=== PATIENT | female | born 1975 | race Hispanic/Latino ===

== ENCOUNTER 2016-05-23 23:06 | Emergency (ER) | payer MEDICARE, MEDICAID ==
[~2016-05-23] VITALS: Ht 152.4 cm; Wt 63.2 kg
[~2016-05-23 23:06] MED LIST: BENZ200C44 PO; BUSP30TA2 PO; GABA800T2 PO; HYDR-656 PO; PRAZ1CAP2 PO; TOPI-59 PO; TOPI25TA26 PO; VENL100T3 PO
[2016-05-23 23:10] VITALS: BP 107/67; PULSE 89; RESP 16; O2SAT 98
--- NOTE | 2016-05-24 02:41 | ED.REPORT ---
HPI-Headache Date of Service May 24, 2016 ED Provider: Дмитрий Montalvo MD Pt is a 41 y/o female w/ a hx of frequent migraines with multiple negative workups presenting to the ED c/o migraine headache onset today. She states this headache is exactly similar to her previous migraines. Her headache is resolved at time of interview and she is asymptomatic. Pt denies neck pain, fever. Nursing Notes Stated Complaint: HEADACHE Chief Complaint: Headache Nursing Notes Reviewed: Yes Allergies: Coded Allergies: duloxetine HCl (Verified Adverse Reaction, Intermediate, Nausea,Vomiting, 09/04/15) pregabalin (Verified Adverse Reaction, Intermediate, Dizziness, Vomiting, 09/04/15) Scheduled Buspirone (Buspirone) 30 Mg Tablet 5 MG PO DAILY Gabapentin (Gabapentin) 800 Mg Tablet 800 MG PO DAILY Prazosin (Prazosin) 1 Mg Capsule 1 MG PO HS Topiramate (Topamax) 25 Mg Tablet 25 MG PO BID Topiramate (Topiramate) 25 Mg Tablet 25 MG PO BID Venlafaxine (Venlafaxine) 100 Mg Tablet 100 MG PO BID 1.5 tabs BID Scheduled PRN Benzonatate (Benzonatate) 200 Mg Capsule 200 MG PO TID PRN PRN For Cough hydrOXYzine Hcl (HydrOXYzine Hcl) 25 Mg Tablet 25 MG PO BID PRN PRN For Anxiety 3-4 tabs bid General Time Seen by MD: 02:39 Chief Complaint Migraine headache Hx Obtained From: Patient Arrived By: Walk-in Sudden in Onset?: No Onset Occurred: 1 - 4 hours ago Symptom Duration: Since onset Location: : Generalized Quality: Painful Severity: Current: Moderate Severity: Maximum: Moderate Recent Healthcare: Previous diagnosis, Prior workup Similar Sx Previous: Yes Past Medical History Past Medical History Notes: Seen by PCP 05/08/15, ED 05/23/15, and ED 06/11/15 for pain post hysterectomy - has had CT scan at each visit (x3) NAD Past Medical History Frequent ED visits for migraine (patient has had 18 Head CTs over the years at [facility]) Fibromyalgia Depression with h/o multiple suicide gestures Chronic Abdominal Pain Pt sent to [facility] 12/07/2003 for Subarachnoid Hemorrhage (No surgery, 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 angiogram revealed diffuse vasculitis, 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 Physical Exam Initial Vital Signs Vital Signs (First) Date Time Temp Pulse Resp B/P Pulse Ox O2 Delivery O2 Flow Rate FiO2 05/23/16 23:10 36.5 89 16 107/67 98 Room Air Initial VS: Reviewed, Vital signs normal ENT: Mucous membranes moist, Conjunctiva normal, No scleral icterus Respiratory: Breath sounds normal, Clear to auscultation, No respiratory distress Cardiovascular: Regular rate & rhythm, Heart sounds normal, Intact distal pulses Abdomen / GI: Soft, Non-tender Extremities: Vascular intact, Neuro intact, No swelling, No tenderness Skin: Warm, Dry, No cyanosis Psychiatric: Mood/affect normal, Behavior normal, Normal thought content General/Constitutional: Awake, Alert, No acute distress, Cooperative, Not toxic appearing Head / Eyes: Atraumatic, Normocephalic, PERRL, EOMI Neck: Atraumatic, Supple, No meningismus, Full range of motion Neurologic: Oriented X3, Speech NL, No motor deficits, No sensory deficits, CN II - XII intact, Cerebellar NL, Memory NL Re-Eval/Medical Decision Med Decision/Clinical Course 41-year-old female history of chronic headaches presenting with her typical chronic headache this evening. No meningeal signs or symptoms. No fevers. Her symptoms resolved prior to being evaluated. She was given a dose of Toradol and discharged with return precautions. Re-Evaluation/Progress : Time of Eval: 02:50 )( Patient Status: Condition resolved, Complete relief Re-Evaluation/Progress Note: Pt rechecked. Informed pt of plan for treatment. Pt understands and agrees with plan for treatment. F/U instructions and RTER warnings given. All questions addressed. Counseled Regarding: Diagnosis, Lab results, Need for follow-up, When/why to return to ED Discharge & Departure Impression: Primary Impression: Migraine Migraine type: unspecified Status migrainosus presence: without status migrainosus Intractability: not intractable Qualified Code: G43.909 - Migraine, unspecified, not intractable, without status migrainosus Disposition: Home Discharge Condition All VS Reviewed: Yes Condition: Stable Patient Instructions: Migraine Headache (ED) Additional Instructions: There are no dangerous neurological findings on your physical exam. Return to the emergency department for high fever, neck stiffness, persistent vomiting, or for other concerning symptoms. Follow-up with your primary care provider next week. Referrals: Ema Coppola MD (PCP) Scribe Attestation Portions of this note were transcribed by Sukhdeep Herrera. I, Dr. Montalvo, personally performed the history, physical exam and medical decision-making; I reviewed and confirmed the accuracy of the information in the transcribed note. Signed by Jessica Sales, 05/24/16 - 1440 copies to: Ema Coppola MD, Ben M MD May 24, 2016 02:41 SUKHDEEP HERRERA May 24, 2016 02:52
[2016-05-24] MEDS ORDERED: Ketorolac 30 mg/mL 2 mL Inj IM ONE (02:55)
[2016-05-24 03:56] VITALS: BP 120/67; PULSE 92; RESP 18; O2SAT 95
[2016-05-24 03:58] VITALS: BP 120/67; PULSE 92; RESP 18; O2SAT 95
== END 2016-05-24 03:59 | disposition home or self-care (01) ==
LOC: SED 23:06
DX: G43.909 Migraine, unspecified, not intractable, without status migrainosus (principal); M79.7 Fibromyalgia; F17.200 Nicotine dependence, unspecified, uncomplicated; Z88.8 Allergy status to other drugs, medicaments and biological substances
CPT/HCPCS: 96372; 99283; J1885

== ENCOUNTER 2016-09-28 22:55 | Emergency (ER) | payer MEDICARE, MEDICAID ==
[~2016-09-28] VITALS: Ht 152.4 cm; Wt 65.5 kg
[2016-09-28 23:17] VITALS: BP 122/85; PULSE 80; RESP 16; O2SAT 98
--- NOTE | 2016-09-28 23:58 | ED.REPORT ---
HPI-Abd Pain F Under 40 Date of Service Sep 28, 2016 ED Provider: Dr. Pisano Pt is a 41 year old Slovak speaking female with a hx of a stroke (2003) and chronic migraines presenting to the ED complaining of lower abdominal pain onset 1.5 weeks ago. She also complains of constipation, bloating, headache ( onset today around 0700), and nausea. Denies fever, chills or any other symptoms at this time. She saw her PCP last week and was given Lactulose, she then had diarrhea on the first day but has not had any BMs since then. She states that this abdominal pain is different than her chronic pain. Denies hx of bowel obstruction. Nursing Notes Stated Complaint: STOMACH PAIN,HEADACHE Chief Complaint: Female Abdominal Pain Nursing Notes Reviewed: Yes Allergies: Coded Allergies: duloxetine HCl (Verified Adverse Reaction, Intermediate, Nausea,Vomiting, 09/04/15) pregabalin (Verified Adverse Reaction, Intermediate, Dizziness, Vomiting, 09/04/15) Scheduled Buspirone (Buspirone) 30 Mg Tablet 5 MG PO DAILY Gabapentin (Gabapentin) 800 Mg Tablet 800 MG PO DAILY Prazosin (Prazosin) 1 Mg Capsule 1 MG PO HS Topiramate (Topamax) 25 Mg Tablet 25 MG PO BID Topiramate (Topiramate) 25 Mg Tablet 25 MG PO BID Venlafaxine (Venlafaxine) 100 Mg Tablet 100 MG PO BID 1.5 tabs BID Scheduled PRN Benzonatate (Benzonatate) 200 Mg Capsule 200 MG PO TID PRN PRN For Cough hydrOXYzine Hcl (HydrOXYzine Hcl) 25 Mg Tablet 25 MG PO BID PRN PRN For Anxiety 3-4 tabs bid General Time Seen by MD: 23:57 Chief Complaint Abdominal pain Hx Obtained From: Patient Arrived By: Walk-in Sudden in Onset?: No Onset Occurred: 1 week ago (1.5 ) Past Medical History Past Medical History Notes: Seen by PCP 05/08/15, ED 05/23/15, and ED 06/11/15 for pain post hysterectomy - has had CT scan at each visit (x3) NAD Past Medical History Frequent ED visits for migraine (patient has had 18 Head CTs over the years at [facility]) Fibromyalgia Depression with h/o multiple suicide gestures Chronic Abdominal Pain Pt sent to 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 Neurologic: Reports: Headache Physical Exam Initial Vital Signs Vital Signs (First) Date Time Temp Pulse Resp B/P Pulse Ox O2 Delivery O2 Flow Rate FiO2 09/28/16 23:17 36.9 80 16 122/85 98 Room Air Initial VS: Reviewed Head / Eyes: Atraumatic, Normocephalic, PERRL ENT: Mucous membranes moist, Conjunctiva normal, No scleral icterus Neck: Supple, Non-tender, Full range of motion Extremities: Vascular intact, Neuro intact, No swelling, No tenderness Skin: Warm, Dry, No cyanosis Neurologic: Alert, Oriented, Nonfocal Psychiatric: Mood/affect normal, Behavior normal, Normal thought content General/Constitutional: Awake, Alert In moderate distress due to pain Respiratory / Chest: Atraumatic, Breath sounds NL, Breath sounds = bilat, No respiratory distress Cardiovascular: Heart rate NL, Regular rhythm, Heart sounds NL, Peripheral circulation NL Abdomen: No guarding, No rebound Tenderness/Guarding/Rebound: Positive: Tender diffuse Bowel Sounds / Distention: Positive: Distention moderate Interpretation & Diagnostics Interpretation & Diagnostics: Urine Preg negative HEAD CT: CONCLUSION: No acute intracranial findings. This report was transmitted to the emergency room at 09/29/2016 - 2:09:39 AM PDT. Lab Results Interpretation Result Diagram: 09/29/16 0041 09/29/16 0041 Test 09/29/16 00:35 09/29/16 00:41 09/29/16 01:04 Urine Color Straw (YELLOW) Urine Appearance Clear (CLEAR,HAZY) Urine pH 6.0 (5.0-8.0) Urine Specific Bonner 1.010 (1.003-1.035) Urine Protein Negativemg/dL (NEG,TRACE) Urine Glucose (UA) Negativemg/dL (NEGATIVE) Urine Ketones Negativemg/dL (NEGATIVE) Urine Occult Blood Trace (NEGATIVE) Urine Nitrite Negative (NEGATIVE) Urine Bilirubin Negative (NEGATIVE) Urine Urobilinogen Normalmg/dL (NORMAL) Urine Leukocyte Esterase Trace (NEGATIVE) Urine RBC 0-2/hpf (0-2) Urine WBC 0-5/hpf (0-5) Urine Epithelial Cells Few/hpf (NONE-MOD) Urine Crystals None seen (NONE SEEN) Urine Bacteria None/hpf (NONE-FEW) Urine Hyaline Casts None/lpf (NONE) Urine Granular Casts None seen (NONE SEEN) Urine Waxy Casts Rare (NONE SEEN) Urine Red Blood Cell Casts None seen (NONE SEEN) Urine White Blood Cell Casts None seen (NONE SEEN) Urine Mucus Present (None Seen) Urine Trichomonas None seen (NONE SEEN) Urine Yeast None (NONE SEEN) Urinalysis Comment None Urine Culture Reflexed Indicated White Blood Count 12.3th/mm3 (3.8-10.1) Red Blood Count 4.39mil/mm3 (3.90-5.20) Hemoglobin 12.8g/dL (12.0-15.6) Hematocrit 37.0% (35.0-46.0) Mean Corpuscular Volume 84.3fL (81-100) Mean Corpuscular Hemoglobin 29.2pg (27.0-35.0) Mean Corpuscular Hemoglobin Concent 34.6% (32.0-37.0) Red Cell Distribution Width 12.3% (12.3-15.4) Platelet Count 203bil/L (150-400) Neutrophils (%) (Auto) 65.4% (40-74) Lymphocytes (%) (Auto) 26.5% (14-46) Monocytes (%) (Auto) 4.6% (4-12) Eosinophils (%) (Auto) 2.5% (0-5) Basophils (%) (Auto) 0.5% (0-3) Sodium Level 137mEq/L (134-144) Potassium Level 3.9mEq/L (3.5-5.2) Chloride Level 100mEq/L (97-108) Carbon Dioxide Level 23mmol/L (18-29) Blood Urea Nitrogen 11mg/dL (6-24) Creatinine 0.57mg/dL (0.57-1.00) Estimat Glomerular Filtration Rate 167mL/min (>59) Glucose Level 90mg/dL (60-99) Calcium Level 9.4mg/dL (8.5-10.1) Magnesium Level 2.0mg/dL (1.6-2.6) Total Bilirubin 0.2mg/dL (0.0-1.2) Aspartate Amino Transf (AST/SGOT) 12U/L (0-50) Alanine Aminotransferase (ALT/SGPT) 13U/L (0-32) Alkaline Phosphatase 50U/L (25-150) Total Protein 6.6g/dL (6.4-8.4) Albumin 3.8g/dL (3.4-5.0) Lipase 44U/L (13-60) Lactic Acid Level 0.5mmol/L (0.4-2.0) CT Abd / Pelvis Interpretation CONCLUSION: Normal caliber appendix. No free air, bowel obstruction, or gross intestinal inflammation. This report was transmitted to the emergency room at 09/29/2016 - 2:12:13 AM PDT. Re-Eval/Medical Decision Med Decision/Clinical Course 41-year-old female with chronic recurrent headaches associated with chronic abdominal pain presents complaining of both her chronic headache and abdominal pain. She is concerned because the abdominal pain now is much more severe than it has been in the past. Her headache is classic for her prior headaches. Headache was not thunderclap. Headache was not maximal at onset. Regarding the abdomen she feels that she has not had a bowel movement within 2 days that has not been forced. She has been on various stool softeners. On examination vitals were stable. Her neck was supple and she had no signs of meningitis clinically normal cardiopulmonary examination she has urinary distended abdomen that was diffusely tender. I can barely touch her without her jump off the bed. CT of her head abdomen pelvis were reassuring. Laboratory work showed a mild leukocytosis. I recommended lumbar puncture and she declined this. She states that her headaches are like this most the time since her stroke and she does not want to go to that procedure. I did warn her that if she has a fever or any neck stiffness she has come back right away. She was medicated and felt better. Discharge is able to get up and walk around essentially pain-free. I do recommend next day follow-up. Re-Evaluation/Progress : Time of Eval: 01:15 Patient Status: Condition improved Re-Evaluation/Progress Note: Discussed the history and performed physical exam. Counseled Regarding: Diagnosis, Lab results, Need for follow-up, When/why to return to ED Discharge & Departure Primary Impression: Pain, abdominal, nonspecific Additional Impression: Headache Headache type: unspecified Headache chronicity pattern: acute headache Intractability: not intractable Qualified Code: R51 - Headache Disposition: Home Discharge Condition All VS Reviewed: Yes Condition: Improved Patient Instructions: Acute Abdominal Pain (ED), Acute Headache (DC) Additional Instructions: The CAT scan of your abdomen was reassuring. The CAT scan of your head was reassuring. Laboratory work shows a mildly elevated white blood cell count. Rest tonight. The cause of your pain is uncertain. Start taking MiraLAX twice daily to help with bowel regularity. If the headache worsens or if you develop any neck stiffness then we need to consider the lumbar puncture as described. Call your doctor first thing in the morning. Do not drive today because you received sedating medications. Return if any problems or any new or worrisome symptoms. GOOGLE TRANSLATE La tomografa computarizada de langston abdomen era tranquilizadora. La tomografa computarizada de langston barbie era tranquilizadora. El trabajo de laboratorio muestra un recuento de glbulos blancos ligeramente elevado. Descansa esta noche. La causa de langston dolor es incierta. Comience a wali MiraLAX dos veces al d a para ayudar con la regularidad intestinal. Si el dolor de barbie empeora o si usted desarrolla cualquier rigidez del kia entonces necesitamos considerar la puncin lumbar segn lo descrito. Llame a langston mdico a primera hora de la maana. No maneje hoy porque recibi medicamentos sedantes. Regresar si hay problemas o sntomas nuevos o preocupantes. Referrals: Ema Coppola MD (PCP) Scribe Attestation Portions of this note were transcribed by Keely Mason. I, Dr. Pisano personally performed the history, physical exam and medical decision-making; I reviewed and confirmed the accuracy of the information in the transcribed note. Signed by : Jessica Sheets, 09/29/2016 at 0300. copies to: Ema Coppola MD, Todd P DO Sep 28, 2016 23:58 KEELY MASON Sep 29, 2016 00:55
[2016-09-29] MEDS ORDERED: 0.9% Sodium Chloride 1,000 ML IV ONE (00:31)
[2016-09-29] MEDS ORDERED: Ondansetron 2 mg/mL 2 mL Inj IVPUSH PRN (00:35)
[2016-09-29 00:46] LABS: BASOPHILS % (AUTO) 0.5 % (0-3); EOSINOPHILS % (AUTO) 2.5 % (0-5); MONOCYTES % (AUTO) 4.6 % (4-12); Mean Corpuscular Hemoglobin 29.2 pg (27.0-35.0); Mean Corpuscular Volume 84.3 fL (81-100); NEUTROPHILS % (AUTO) 65.4 % (40-74); Platelet Count 203 bil/L (150-400)
[2016-09-29] MEDS: HYDROmorphone 0.5 mg/0.5 mL iSecure Syringe IVPUSH PRN ×3 (00:55→01:45)
[2016-09-29 01:05] LABS: APPEARANCE,URINE CLEAR (CLEAR,HAZY); COLOR,URINE STRAW (YELLOW); OCCULT BLOOD,URINE TRACE (NEGATIVE); UROBILINOGEN,URINE NORMAL (NORMAL)
[2016-09-29] MEDS ORDERED: Haloperidol 5 mg/mL Inj IVPUSH ONE (02:25)
[2016-09-29 02:48] VITALS: BP 114/83; PULSE 78; RESP 16; O2SAT 99
[2016-09-29 03:02] VITALS: BP 114/83; PULSE 78; RESP 16; O2SAT 99
--- NOTE | 2016-09-29 07:26 | DRSVH ---
PROCEDURE: CT BRAIN WITHOUT CONTRAST ([id number]) INDICATIONS: headache TECHNIQUE: Noncontrast 4.5 mm thick angled axial sections acquired from the foramen magnum to the vertex, with c oronal reformats. COMPARISON: [facility], CT, CT ABD PELVIS W CON, 06/12/2015, 0:23. FINDINGS: Image quality: Excellent. CSF spaces: Basal cisterns are patent. No extra-axial fluid collections. Ventricles are normal in size and shape. Brain: No midline shift. No intracranial masses or hemorrhage. Calderón-white matter interface is norm al. Skull and face: Calvarium and visualized facial bones are intact, without suspicious lesions. Sinuses: Visualized sinuses and mastoids are clear. IMPRESSION: No CT evidence of acute intracranial pathology. There are no discrepancies with the preliminary report. Dictated by: Jayce Sosa M.D. on 09/29/2016 at 7:23 Approved by: Jayce Sosa M.D. on 09/29/2016 at 7:24
--- NOTE | 2016-09-29 11:01 | DRSVH ---
PROCEDURE: CT ABDOMEN AND PELVIS WITH CONTRAST ([id number]) INDICATIONS: diffuse pain, distended abdomen, leukocytosis TECHNIQUE: After the administration of intravenous contrast, 5 mm thick sections acquired from the diaphragm to the symphysis. 5 mm coronal and sagittal reformats were acquired. For radiation dose reduction, the following was used: automated exposure control, adjustment of mA and/or kV according to patient roberto cabello. COMPARISON: [facility], CT, CT ABD PELVIS W CON, 06/12/2015, 0:23. FINDINGS: Image quality: Excellent. ABDOMEN: Lung bases: Lung bases are clear. Heart size is normal. Solid organs: Liver and spleen are normal in size and enhancement. Gallbladder is present. Biliary system is non dilated. Pancreas enhances normally. No adrenal nodules. Kidneys demonstrate normal size and enhancement, without hydronephrosis. Hysterectomy. Peritoneum and bowel: Bowel loops demonstrate normal wall thickness and caliber. No free fluid or a ir. Nodes and vessels: No retroperitoneal or mesenteric adenopathy by size criteria. Aorta and inferior vena cava are normal in size. Miscellaneous: No ventral hernias. PELVIS: Genitourinary: Bladder wall thickness is normal. Miscellaneous: No inguinal hernias or adenopathy. Bones: No suspicious bony lesions. No vertebral body compression fractures. IMPRESSION: 1. No CT evidence of acute abdominal or pelvic pathology. 2. There are no discrepancies with the preliminary report. Dictated by: Jayce Sosa M.D. on 09/29/2016 at 7:56 Approved by: Jayce Sosa M.D. on 09/29/2016 at 7:59
== END 2016-09-29 03:02 | disposition home or self-care (01) ==
LOC: SED 22:55
DX: R10.84 Generalized abdominal pain (principal); R51 Headache; K59.00 Constipation, unspecified; R11.0 Nausea; R14.0 Abdominal distension (gaseous); G43.909 Migraine, unspecified, not intractable, without status migrainosus; M79.7 Fibromyalgia; F41.8 Other specified anxiety disorders; F17.200 Nicotine dependence, unspecified, uncomplicated; Z86.73 Personal history of transient ischemic attack (TIA), and cerebral infarction without residual deficits; Z98.890 Other specified postprocedural states; Z88.8 Allergy status to other drugs, medicaments and biological substances
CPT/HCPCS: 36415; 70450; 74177; 80053; 81000; 81025; 83605; 83690; 83735; 85025; 87086; 87088; 96361; 96374; 96375; 96376; 99285; J1170; J1200; J1630; J1885; J2405; J7030; Q9967

== ENCOUNTER 2016-10-04 18:41 | Emergency (ER) | payer MEDICARE, MEDICAID ==
[~2016-10-04] VITALS: Ht 152.4 cm; Wt 65.9 kg
[2016-10-04 18:45] VITALS: BP 125/82; PULSE 94; RESP 16; O2SAT 97
--- NOTE | 2016-10-04 20:30 | ED.REPORT ---
HPI-Abd Pain F 40 and Over Date of Service Oct 04, 2016 ED Provider: Дмитрий Montalvo MD Nursing Notes Stated Complaint: CONSTIPATION, ABDOMINAL PAIN Chief Complaint: Female Abdominal Pain Allergies: Coded Allergies: duloxetine HCl (Verified Adverse Reaction, Intermediate, Nausea,Vomiting, 10/04/16) pregabalin (Verified Adverse Reaction, Intermediate, Dizziness, Vomiting, 10/04/16) Scheduled Buspirone (Buspirone) 30 Mg Tablet 5 MG PO DAILY Gabapentin (Gabapentin) 800 Mg Tablet 800 MG PO DAILY Prazosin (Prazosin) 1 Mg Capsule 1 MG PO HS Topiramate (Topamax) 25 Mg Tablet 25 MG PO BID Topiramate (Topiramate) 25 Mg Tablet 25 MG PO BID Venlafaxine (Venlafaxine) 100 Mg Tablet 100 MG PO BID 1.5 tabs BID Scheduled PRN Benzonatate (Benzonatate) 200 Mg Capsule 200 MG PO TID PRN PRN For Cough hydrOXYzine Hcl (HydrOXYzine Hcl) 25 Mg Tablet 25 MG PO BID PRN PRN For Anxiety 3-4 tabs bid General Time Seen by MD: 20:29 Past Medical History Past Medical History Notes: Seen by PCP 05/08/15, ED 05/23/15, and ED 06/11/15 for pain post hysterectomy - has had CT scan at each visit (x3) NAD Past Medical History Frequent ED visits for migraine (patient has had 18 Head CTs over the years at [facility]) Fibromyalgia Depression with h/o multiple suicide gestures Chronic Abdominal Pain Pt sent to [facility] 12/07/2003 for Subarachnoid Hemorrhage (No surgery, 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
== END 2016-10-04 20:28 | disposition left against medical advice (07) ==
LOC: SED 18:41
DX: Z53.20 Procedure and treatment not carried out because of patient's decision for unspecified reasons (principal)

== ENCOUNTER 2016-11-24 17:52 | Emergency (ER) | payer MEDICARE, MEDICAID ==
[~2016-11-24] VITALS: Ht 152.4 cm; Wt 63.6 kg
[~2016-11-24 17:52] MED LIST changes: -TOPI25TA26 PO; +TOPI25TA34 PO
[2016-11-24 17:55] VITALS: BP 137/82; PULSE 77; RESP 16; O2SAT 99
--- NOTE | 2016-11-24 19:41 | ED.REPORT ---
HPI-Headache Date of Service Nov 24, 2016 ED Provider: Yaakov Pisano DO A 41 year old female with a history of fibromyalgia, depression, anxiety, CVA and frequent ED visits for migraines presents to the ED complaining of a headache. The headache began yesterday, though the pt does not remember what she was doing at onset, and is severe enough to prevent her from sleeping normally. The pt has been experiencing similar headaches for twelve years since her stroke and this headache is not acutely different. She has been taking ibuprofen to treat the pain but is not on any blood pressure medications. Nursing Notes Stated Complaint: HEADACHE Chief Complaint: Headache Nursing Notes Reviewed: Yes Allergies: Coded Allergies: duloxetine HCl (Verified Adverse Reaction, Intermediate, Nausea,Vomiting, 10/04/16) pregabalin (Verified Adverse Reaction, Intermediate, Dizziness, Vomiting, 10/04/16) Scheduled Buspirone (Buspirone) 30 Mg Tablet 5 MG PO DAILY Gabapentin (Gabapentin) 800 Mg Tablet 800 MG PO DAILY Prazosin (Prazosin) 1 Mg Capsule 1 MG PO HS Topiramate (Topamax) 25 Mg Tablet 25 MG PO BID Topiramate (Topiramate) 25 Mg Tablet 25 MG PO BID Venlafaxine (Venlafaxine) 100 Mg Tablet 100 MG PO BID 1.5 tabs BID Scheduled PRN Benzonatate (Benzonatate) 200 Mg Capsule 200 MG PO TID PRN PRN For Cough hydrOXYzine Hcl (HydrOXYzine Hcl) 25 Mg Tablet 25 MG PO BID PRN PRN For Anxiety 3-4 tabs bid General Time Seen by MD: 19:40 Chief Complaint Headache Hx Obtained From: Patient Arrived By: Walk-in Sudden in Onset?: No Onset Occurred: 1 day ago Symptom Duration: Since onset Recent Healthcare: No recent hospitalization, Recent doctor visit Similar Sx Previous: Yes Past Medical History Past Medical History Notes: Seen by PCP 05/08/15, ED 05/23/15, and ED 06/11/15 for pain post hysterectomy - has had CT scan at each visit (x3) NAD Past Medical History Frequent ED visits for migraine (patient has had 18 Head CTs over the years at [facility]) Fibromyalgia Depression with h/o multiple suicide gestures Chronic Abdominal Pain Pt sent to [facility] 12/07/2003 for Subarachnoid Hemorrhage (No surgery, [employer] angiogram revealed diffuse vasculitis, LP negative) STD (Chlamydia) Anxiety Endometritis SBO CVA 2003 "due to blood pressure" Pneumonia UTI Past Surgical History Endoscopy Reports: , Hysterectomy Family History Mom in childbirth Smoking History Current Some Day Smoker Social History Alcohol Use: Denies alcohol use Drug Use: Denies drug use Other Social History: Frequent ED visitor, Local resident Ambulatory Status Independent Review of Systems GI: Denies: Abdominal pain, Vomiting Musculoskeletal: Denies: Back pain, Neck pain Skin: Denies Rash Neurologic: Reports: Headache Complete sys rev & neg: except as marked. Respiratory: Denies: Non-productive cough, Shortness of breath Cardiovascular: Denies: Chest pain Physical Exam Initial Vital Signs Vital Signs (First) Date Time Temp Pulse Resp B/P Pulse Ox O2 Delivery O2 Flow Rate FiO2 11/24/16 17:55 36.7 77 16 137/82 99 Room Air Initial VS: Reviewed General/Constitutional: Awake, Alert Head / Eyes: Atraumatic, Normocephalic, PERRL, EOMI pupils 5 mm and reactive Neck: Atraumatic, Supple, Full range of motion Neurologic: Oriented X3, Speech NL, No motor deficits, No sensory deficits, CN II - XII intact ENT: Atraumatic, Airway patent, Mucous membranes moist Respiratory / Chest: Atraumatic, Breath sounds NL, Breath sounds = bilat, No respiratory distress Cardiovascular: Heart rate NL, Regular rhythm, Heart sounds NL Abdomen: Atraumatic, Soft, Non-tender Skin: Atraumatic, Color NL, No rash, Warm, Dry Psychiatric: Affect NL, Mood NL Back: Atraumatic, Full range of motion Upper Extremity / MS: Atraumatic, Full range of motion Lower Extremity / Pelvis / MS: Atraumatic, Full range of motion Interpretation & Diagnostics Lab Results Interpretation Result Diagram: 11/24/16210311/24/16 210 Test 11/24/16 21:04 White Blood Count 8.2th/mm3 (3.8-10.1) Red Blood Count 4.44mil/mm3 (3.90-5.20) Hemoglobin 13.0g/dL (12.0-15.6) Hematocrit 37.8% (35.0-46.0) Mean Corpuscular Volume 85.1fL (81-100) Mean Corpuscular Hemoglobin 29.3pg (27.0-35.0) Mean Corpuscular Hemoglobin Concent 34.4% (32.0-37.0) Red Cell Distribution Width 12.4% (12.3-15.4) Platelet Count 102bil/L (150-400) Neutrophils (%) (Auto) 53.8% (40-74) Lymphocytes (%) (Auto) 36.3% (14-46) Monocytes (%) (Auto) 6.1% (4-12) Eosinophils (%) (Auto) 2.7% (0-5) Basophils (%) (Auto) 0.5% (0-3) Sodium Level 137mEq/L (134-144) Potassium Level 4.1mEq/L (3.5-5.2) Chloride Level 99mEq/L (97-108) Carbon Dioxide Level 22mmol/L (18-29) Blood Urea Nitrogen 17mg/dL (6-24) Creatinine 0.71mg/dL (0.57-1.00) Estimat Glomerular Filtration Rate 129mL/min (>59) Glucose Level 85mg/dL (60-99) Calcium Level 9.6mg/dL (8.5-10.1) Total Bilirubin 0.3mg/dL (0.0-1.2) Aspartate Amino Transf (AST/SGOT) 13U/L (0-50) Alanine Aminotransferase (ALT/SGPT) 11U/L (0-32) Alkaline Phosphatase 48U/L (25-150) C-Reactive Protein 0.1mg/dL (0.0-0.5) Total Protein 6.7g/dL (6.4-8.4) Albumin 3.9g/dL (3.4-5.0) Pulse Oximetry Interpretation Pulse Oximetry Interpretation: 99% on room air Pulse Oximetry: Pulse Ox normal Re-Eval/Medical Decision Source of Hx: Old records Re-Evaluation/Progress : Time of Eval: 00:25 )( Patient Status: Condition improved Re-Evaluation/Progress Note: Pt rechecked, whose headache has improved. I recommended a CT scan and then lumbar puncture. Mrs. Song declines. She is feeling much better. She has had numerous CAT scans since her stroke. She does not feel that she has meningitis or hemorrhage. She understood the risks and my concerns. I do think however this is a reasonable decision taking taking into account that she has a normal neurologic exam, her headache was not thunderclap and she has no nuchal rigidity or signs of meningitis clinically. She did promise me that if she has any problems or if the pain comes back return to the emergency department. She was discharged in stable condition. Counseled Regarding: Diagnosis, Lab results, Need for follow-up, When/why to return to ED Discharge & Departure Impression: Primary Impression: Headache Headache type: unspecified Headache chronicity pattern: acute headache Intractability: not intractable Qualified Code: R51 - Headache Disposition: Home Discharge Condition All VS Reviewed: Yes Condition: Stable Patient Instructions: Acute Headache (ED) Additional Instructions: If your develop neck stiffness or stroke-type symptoms, return to the emergency department to get the CT scan as instructed. If you develop fever or thunderclap headache, you will need a lumbar puncture. Rest tonight as you have received sedating medications. Stay on all of your normal medications. Call your primary care physician to arrange a follow up appointment next week for further evaluation. Return to the emergency department if you develop any new or worsening symptoms. Referrals: Ema Coppola MD (PCP) Scribe Attestation Portions of this note were transcribed by Edmundo Basurto. I, Dr. Pisano personally performed the history, physical exam and medical decision-making; I reviewed and confirmed the accuracy of the information in the transcribed note. copies to: Ema Coppola MD, Todd P DO Nov 24, 2016 19:41 EDMUNDO BASURTO Nov 24, 2016 20:00
[2016-11-24] MEDS ORDERED: Dexamethasone 10 mg/mL Inj IVPUSH ONE (20:00)
[2016-11-24] MEDS ORDERED: Ondansetron 2 mg/mL 2 mL Inj IVPUSH ONE (20:00)
[2016-11-24] MEDS: 0.9% Sodium Chloride 1,000 ML IV SCH ×2 (20:55→21:49)
[2016-11-24 21:16] LABS: BASOPHILS % (AUTO) 0.5 % (0-3); EOSINOPHILS % (AUTO) 2.7 % (0-5); MONOCYTES % (AUTO) 6.1 % (4-12); Mean Corpuscular Hemoglobin 29.3 pg (27.0-35.0); Mean Corpuscular Volume 85.1 fL (81-100); NEUTROPHILS % (AUTO) 53.8 % (40-74); Platelet Count 102 bil/L (150-400)
[2016-11-24 22:49] VITALS: BP 132/80; PULSE 72; RESP 16; O2SAT 100
[2016-11-25] MEDS ORDERED: Sodium Chloride LOK Flush 10 mL Syringe IVFLUSH SCH (00:30)
[2016-11-25 00:37] VITALS: BP 128/82; PULSE 70; RESP 16; O2SAT 99
== END 2016-11-25 00:39 | disposition home or self-care (01) ==
LOC: SED 17:52
DX: R51 Headache (principal); Z86.73 Personal history of transient ischemic attack (TIA), and cerebral infarction without residual deficits; Z90.710 Acquired absence of both cervix and uterus; F17.200 Nicotine dependence, unspecified, uncomplicated; Z88.8 Allergy status to other drugs, medicaments and biological substances
CPT/HCPCS: 36415; 80053; 85025; 86140; 96361; 96374; 96375; 99284; J1100; J1200; J1885; J2060; J2405; J7030